=== PATIENT | male | born 1945 | race American Indian/Alaskan Native ===

== ENCOUNTER 2017-01-12 11:09 | Emergency (ER) | payer MEDICARE, OTHER ==
[2017-01-12 11:20] VITALS: BP 135/87
--- NOTE | 2017-01-12 13:28 | Emergency Department Report ---
ED ENT HPI - General Chief complaint: Sore Throat Stated complaint: SORE THROAT/ COUGH Time Seen by Provider: 01/12/17 13:10 Source: patient Mode of arrival: Ambulatory Limitations: No Limitations - History of Present Illness Initial comments: 71 y/o male complain of sore throat x 2 days with non productive cough MD complaint: sore throat Onset/Timin -: days(s) Location: throat Severity: moderate Severity scale (0 -10): 6 Quality: aching Consistency: intermittent Improves with: none Worsens with: swallowing Associated Symptoms: cough - Related Data Previous Rx's Medication Instructions Recorded Last Taken Type Acetaminophen/Codeine [Tylenol #3] 1 tab PO Q6H PRN #20 tab 07/06/16 Unknown Rx Cyclobenzaprine [Flexeril] 10 mg PO TID PRN #30 tablet 07/06/16 Unknown Rx Ibuprofen [Motrin] 600 mg PO Q8H PRN #50 tablet 07/06/16 Unknown Rx Acetaminophen with Codeine 120 ml PO Q6HR #120 ml 01/12/17 Unknown Rx [Acetaminop-Codeine 120-12 mg/5] Amoxicillin/K Clav Tab [Augmentin 1 tab PO Q12HR #14 tab 01/12/17 Unknown Rx 875 mg] Allergies Allergy/AdvReac Type Severity Reaction Status Date / Time No Known Allergies Allergy Verified 07/05/16 20:30 ED Dental HPI - General Chief complaint: Sore Throat Stated complaint: SORE THROAT/ COUGH Time Seen by Provider: 01/12/17 13:10 Source: patient Mode of arrival: Ambulatory Limitations: No Limitations - Related Data Previous Rx's Medication Instructions Recorded Last Taken Type Acetaminophen/Codeine [Tylenol #3] 1 tab PO Q6H PRN #20 tab 07/06/16 Unknown Rx Cyclobenzaprine [Flexeril] 10 mg PO TID PRN #30 tablet 07/06/16 Unknown Rx Ibuprofen [Motrin] 600 mg PO Q8H PRN #50 tablet 07/06/16 Unknown Rx Acetaminophen with Codeine 120 ml PO Q6HR #120 ml 01/12/17 Unknown Rx [Acetaminop-Codeine 120-12 mg/5] Amoxicillin/K Clav Tab [Augmentin 1 tab PO Q12HR #14 tab 01/12/17 Unknown Rx 875 mg] Allergies Allergy/AdvReac Type Severity Reaction Status Date / Time No Known Allergies Allergy Verified 07/05/16 20:30 ED Review of Systems ROS: Stated complaint: SORE THROAT/ COUGH Other details as noted in HPI Constitutional: denies: chills, fever Eyes: denies: eye pain, eye discharge, vision change ENT: throat pain. denies: ear pain Respiratory: cough. denies: shortness of breath, wheezing Cardiovascular: denies: chest pain, palpitations Endocrine: no symptoms reported Gastrointestinal: denies: abdominal pain, nausea, diarrhea Genitourinary: denies: urgency, dysuria Musculoskeletal: denies: back pain, joint swelling, arthralgia Skin: denies: rash, lesions Neurological: denies: headache, weakness, paresthesias Psychiatric: denies: anxiety, depression Hematological/Lymphatic: denies: easy bleeding, easy bruising ED Past Medical Hx - Past Medical History Previous Medical History?: Yes Hx Hypertension: Yes - Surgical History Past Surgical History?: No - Social History Smoking Status: Never Smoker Substance Use Type: Prescribed - Medications Home Medications: Home Medications Medication Instructions Recorded Confirmed Last Taken Type Acetaminophen/Codeine [Tylenol #3] 1 tab PO Q6H PRN #20 tab 07/06/16 Unknown Rx Cyclobenzaprine [Flexeril] 10 mg PO TID PRN #30 tablet 07/06/16 Unknown Rx Ibuprofen [Motrin] 600 mg PO Q8H PRN #50 tablet 07/06/16 Unknown Rx Acetaminophen with Codeine 120 ml PO Q6HR #120 ml 01/12/17 Unknown Rx [Acetaminop-Codeine 120-12 mg/5] Amoxicillin/K Clav Tab [Augmentin 1 tab PO Q12HR #14 tab 01/12/17 Unknown Rx 875 mg] ED Physical Exam - General Limitations: No Limitations General appearance: alert, in no apparent distress - Head Head exam: Present: atraumatic, normocephalic - Eye Eye exam: Present: normal appearance - ENT ENT exam: Present: mucous membranes moist - Expanded ENT Exam Expanded Ear exam: Present: normal external inspection TM/Canal exam: Effusion: Right TM, Left TM Mouth exam: Absent: drooling, trismus, muffled voice Teeth exam: Present: normal inspection Throat exam: Positive: tonsillar erythema, tonsillomegaly, other (post nasal drip ) - Neck Neck exam: Present: normal inspection - Respiratory Respiratory exam: Present: normal lung sounds bilaterally. Absent: respiratory distress, wheezes, rales, rhonchi - Cardiovascular Cardiovascular Exam: Present: regular rate, normal rhythm. Absent: systolic murmur, diastolic murmur, rubs, gallop - GI/Abdominal GI/Abdominal exam: Present: soft, normal bowel sounds - Rectal Rectal exam: Present: deferred - Extremities Exam Extremities exam: Present: normal inspection - Back Exam Back exam: Present: normal inspection - Neurological Exam Neurological exam: Present: alert, oriented X3 - Psychiatric Psychiatric exam: Present: normal affect, normal mood - Skin Skin exam: Present: warm, dry, intact, normal color. Absent: rash ED Course Vital Signs 01/12/17 11:17 Temperature 98.2 F Pulse Rate 73 Respiratory 18 Rate Blood Pressure 135/87 O2 Sat by Pulse 100 Oximetry ED Medical Decision Making - Medical Decision Making sinusitis decardon 10mg given Im during Ed course for tonsillomegaly Critical care attestation.: If time is entered above; I have spent that time in minutes in the direct care of this critically ill patient, excluding procedure time. ED Disposition Clinical Impression: Sinusitis Qualifiers: Sinusitis location: frontal Chronicity: acute Recurrence: non-recurrent Qualified Code(s): J01.10 - Acute frontal sinusitis, unspecified Disposition: DISCHARGED TO HOME OR SELFCARE Is pt being admited?: No Does the pt Need Aspirin: No Condition: Stable Instructions: Sinusitis (ED) Prescriptions: Acetaminophen with Codeine [Acetaminop-Codeine 120-12 mg/5] 120 ml PO Q6HR #120 ml Amoxicillin/K Clav Tab [Augmentin 875 mg] 1 tab PO Q12HR #14 tab Referrals: PRIMARY CARE, [Primary Care Provider] - 3-5 Days [facility] [Outside] - 3-5 Days Forms: Work/School Release Form(ED) Time of Disposition: 14:02
[2017-01-12] MEDS ORDERED: DECADRON IM ONE (13:49)
== END 2017-01-12 14:19 | disposition home or self-care (01) ==
LOC: ED 11:09
DX: J01.10 Acute frontal sinusitis, unspecified (principal); I10 Essential (primary) hypertension; Z79.1 Long term (current) use of non-steroidal anti-inflammatories (NSAID); Z79.2 Long term (current) use of antibiotics; Z79.899 Other long term (current) drug therapy
CPT/HCPCS: 87116; 87430; 96372; 99282; J1100

== ENCOUNTER 2019-05-19 15:48 | Emergency (ER) | payer MEDICARE ==
--- NOTE | 2019-05-19 16:08 | Event Note ---
ED Screening Note ED Screening Note: This initial assessment/diagnostic orders/clinical plan/treatment(s) is/are subject to change based on patients health status, clinical progression and re- assessment by fellow clinical providers in the ED. Further treatment and workup at subsequent clinical providers discretion. Patient/guardian urged not to elope from the ED as their condition may be serious if not clinically assessed and managed. Initial orders include: PT HAD A PROCEDURE LAST WEEK "WITH NEEDLES" DUE TO HIS HEMATURIA SINCE THEN HE HAS HAD ABD PAIN AND CONSTIPATION ABD DISTENDED NO FEVER RO PERF POOR INFORMANT.
[2019-05-19 17:46] LABS: Hematocrit 38.9 % (35.5-45.6); Hemoglobin 13.1 gm/dl (11.8-15.2); Mean Corpuscular HGB Conc 34 % (32-34); Mean Corpuscular Volume 98 fl (84-94); Platelet Count 164 K/mm3 (140-440); Red Blood Count 3.98 M/mm3 (3.65-5.03)
[2019-05-19 18:09] LABS: Alanine Aminotransferase 17 units/L (7-56); Albumin 4.3 g/dL (3.9-5); BUN/Creatinine Ratio 21; Blood Urea Nitrogen 19 mg/dL (9-20); Calcium 9.5 mg/dL (8.4-10.2); Hemolysis Index 75
--- NOTE | 2019-05-19 18:21 | XRay Report ---
PROCEDURE: XR ABD SERIES W CXR 1V TECHNIQUE: Abdominal series complete, including supine and upright AP views of the abdomen and front al chest. HISTORY: ABD PAIN COMPARISONS: None . FINDINGS: Heart: Normal. Mediastinum/Vessels: Normal. Lungs/Pleural space: No infiltrate, effusion, or pneumothorax. Bowel gas pattern: There is moderate to large volume of stool in the colon. Bowel gas pattern is non obstructive. . Masses or calcifications: None . Bony structures: No acute osseous abnormality . Other: No free intraperitoneal air . IMPRESSION: Moderate to large volume of stool seen throughout the colon. This document is electronically signed by Laverne Venegas MD., May 19 2019 06:19:23 PM ET
--- NOTE | 2019-05-19 20:03 | Emergency Department Report ---
ED Abdominal Pain HPI - General Chief Complaint: Abdominal Pain Stated Complaint: CONSTIPATION Time Seen by Provider: 05/19/19 16:07 Source: patient Mode of arrival: Ambulatory Limitations: No Limitations - History of Present Illness Initial Comments: 73-year-old -Swedish male presents to the emergency room for constipation with rectal pain. Patient states he took a full bottle of magnesium to titrate this a.m. but no relief of constipation. Patient reports that he had a prostate I opted on 05/14/[address] Santos urologist [facility]. He has a primary care provider Dr. Messina. He has a past medical history of hypertension. Patient currently takes amlodipine and hydrochlorothiazide. Patient reports that he sees light blood in stool every so often. She denies any nausea or vomiting no fever or chills. MD Complaint: abdominal pain Onset/Timin -: days(s) Location: diffuse Radiation: other (rectal pain) Severity: moderate Quality: fullness Consistency: constant Improves With: nothing Worsens With: nothing Context: recent surgery/procedure (prostate biopsy 05/15/2019) Associated Symptoms: constipation, hematochezia. denies: nausea, vomiting, diarrhea, chills, dysuria, hematemesis Treatments Prior to Arrival: other (magnesium titrate) - Related Data Previous Rx's Medication Instructions Recorded Last Taken Type Acetaminophen/Codeine [Tylenol #3] 1 tab PO Q6H PRN #20 tab 07/06/16 Unknown Rx Cyclobenzaprine [Flexeril] 10 mg PO TID PRN #30 tablet 07/06/16 Unknown Rx Ibuprofen [Motrin] 600 mg PO Q8H PRN #50 tablet 07/06/16 Unknown Rx Acetamin/Codeine 120-12Mg/5 ml 5 ml PO TID PRN #120 ml 01/12/17 Unknown Rx [Tylenol/Codeine] Amoxicillin/K Clav Tab [Augmentin 1 tab PO Q12HR #14 tab 01/12/17 Unknown Rx 875 mg] Polyethylene Glycol 3350 [Miralax] 70 gm PO QDAY #1 bottle 05/19/19 Unknown Rx Allergies Allergy/AdvReac Type Severity Reaction Status Date / Time No Known Allergies Allergy Verified 07/05/16 20:30 ED Review of Systems ROS: Stated complaint: CONSTIPATION Other details as noted in HPI Comment: All other systems reviewed and negative ED Past Medical Hx - Past Medical History Previous Medical History?: Yes Hx Hypertension: Yes - Surgical History Past Surgical History?: No - Social History Smoking Status: Never Smoker Substance Use Type: Prescribed - Medications Home Medications: Home Medications Medication Instructions Recorded Confirmed Last Taken Type Acetaminophen/Codeine [Tylenol #3] 1 tab PO Q6H PRN #20 tab 07/06/16 Unknown Rx Cyclobenzaprine [Flexeril] 10 mg PO TID PRN #30 tablet 07/06/16 Unknown Rx Ibuprofen [Motrin] 600 mg PO Q8H PRN #50 tablet 07/06/16 Unknown Rx Acetamin/Codeine 120-12Mg/5 ml 5 ml PO TID PRN #120 ml 01/12/17 Unknown Rx [Tylenol/Codeine] Amoxicillin/K Clav Tab [Augmentin 1 tab PO Q12HR #14 tab 01/12/17 Unknown Rx 875 mg] Polyethylene Glycol 3350 [Miralax] 70 gm PO QDAY #1 bottle 05/19/19 Unknown Rx ED Physical Exam - General Limitations: No Limitations General appearance: alert, in no apparent distress - Head Head exam: Present: atraumatic, normocephalic - Eye Eye exam: Present: normal appearance - ENT ENT exam: Present: mucous membranes moist - Respiratory Respiratory exam: Present: normal lung sounds bilaterally. Absent: respiratory distress - Cardiovascular Cardiovascular Exam: Present: regular rate, normal rhythm. Absent: systolic murmur, diastolic murmur, rubs, gallop - GI/Abdominal GI/Abdominal exam: Present: soft, distended. Absent: tenderness ED Medical Decision Making - Lab Data Result diagrams: 05/19/19 17:32 05/19/19 17:32 - Radiology Data Radiology results: report reviewed Ordering Physician: FRANKY PRADO Date of Service: 05/19/19 Procedure(s): XR abd series w cxr 1V Accession Number(s): [id number] cc: FRANKY PRADO Fluoro Time In Minutes: PROCEDURE: XR ABD SERIES W CXR 1V TECHNIQUE: Abdominal series complete, including supine and upright AP views of the abdomen and frontal chest. HISTORY: ABD PAIN COMPARISONS: None . FINDINGS: Heart: Normal. Mediastinum/Vessels: Normal. Lungs/Pleural space: No infiltrate, effusion, or pneumothorax. Bowel gas pattern: There is moderate to large volume of stool in the colon. Bowel gas pattern is nonobstructive. . Masses or calcifications: None . Bony structures: No acute osseous abnormality . Other: No free intraperitoneal air . IMPRESSION: Moderate to large volume of stool seen throughout the colon. This document is electronically signed by Laverne Venegas MD., May 19 2019 06:19:23 PM ET Transcribed By: [facility] Dictated By: LAVERNE VENEGAS M.D. Electronically Authenticated By: LAVERNE VENEGAS M.D. Signed Date/Time: 05/19/19 182 DD/ 1640 TD/TT: 05/19/19 1640 - Medical Decision Making 73-year-old male comes in for constipation. Patient ports just took some mag citrate. Since patient has been here in the emergency room after ordering disim paction was able to have 2 large stools before digital removal. Patient reports that he feels much better and will like to be discharged home. Discussed the patient he needs to get [id number] MiraLAX to take in the morning with his coffee and juice. Follow-up with his primary care provider. Critical care attestation.: If time is entered above; I have spent that time in minutes in the direct care of this critically ill patient, excluding procedure time. ED Disposition Clinical Impression: Constipation Disposition: DC-01 TO HOME OR SELFCARE Is pt being admited?: No Does the pt Need Aspirin: No Condition: Stable Instructions: Constipation (ED), High Fiber Diet (ED) Additional Instructions: Please take MiraLAX as prescribed. Increase her water intake and high fiber diet. Follow-up with her primary care provider if she continued to suffer from constipation. Prescriptions: Polyethylene Glycol 3350 [Miralax] 70 gm PO QDAY #1 bottle Referrals: VIANEY SIDDIQUI MD [Primary Care Provider] - 3-5 Days
[2019-05-19 23:38] VITALS: BP 135/89
== END 2019-05-19 23:36 | disposition home or self-care (01) ==
LOC: ED 15:48
DX: K59.00 Constipation, unspecified (principal); I10 Essential (primary) hypertension
CPT/HCPCS: 36415; 74022; 80053; 85027; 99283

== ENCOUNTER 2021-12-11 13:10 | Emergency (ER) | payer MEDICARE ==
[2021-12-11] MEDS ORDERED: dexAMETHasone 20 MG/5 ML VIAL IM ONE (14:51)
[2021-12-11] MEDS ORDERED: IBUPROFEN 400 MG TAB PO ONE (14:51)
--- NOTE | 2021-12-11 14:52 | Emergency Department Report ---
ED ENT HPI - General Chief complaint: Sore Throat Stated complaint: SORE THROAT Time Seen by Provider: 12/11/21 14:35 Source: patient Mode of arrival: Ambulatory Limitations: No Limitations - History of Present Illness Initial comments: 75-year-old -Polish male with a past medical history of hypertension presents to the ER today with sore throat and cough. Patient states that his symptoms started 2 days ago. He states that his having pain when he swallows. He denies any swelling in the throat. He denies any trismus or drooling. He states that his cough has been productive. He did feel feverish this past Saturday but this has since resolved. He denies any runny nose, nasal congestion, chest pain, shortness of breath or wheezing. He denies ill contacts or recent travel. He has been vaccinated against COVID-19. complaint: sore throat -: days(s) (2 days ) - Related Data Previous Rx's Medication Instructions Recorded Last Taken Type Amoxicillin [Trimox CAP] 500 mg PO Q8H #30 capsule 12/11/21 Unknown Rx Naproxen Sodium [Naproxen Sodium 220 mg PO Q6H PRN #20 12/11/21 Unknown Rx 220mg] Phenol/Glycerin [Chloraseptic Max 1 - 2 spray PO Q4HR PRN #1 spray 12/11/21 Unknown Rx [place]] Allergies Allergy/AdvReac Type Severity Reaction Status Date / Time No Known Allergies Allergy Verified 12/11/21 13:12 ED Dental HPI - General Chief complaint: Sore Throat Stated complaint: SORE THROAT Time Seen by Provider: 12/11/21 14:35 Source: patient Mode of arrival: Ambulatory Limitations: No Limitations - Related Data Previous Rx's Medication Instructions Recorded Last Taken Type Amoxicillin [Trimox CAP] 500 mg PO Q8H #30 capsule 12/11/21 Unknown Rx Naproxen Sodium [Naproxen Sodium 220 mg PO Q6H PRN #20 12/11/21 Unknown Rx 220mg] Phenol/Glycerin [Chloraseptic Max 1 - 2 spray PO Q4HR PRN #1 spray 12/11/21 Unknown Rx [place]] Allergies Allergy/AdvReac Type Severity Reaction Status Date / Time No Known Allergies Allergy Verified 12/11/21 13:12 ED Review of Systems ROS: Stated complaint: SORE THROAT Other details as noted in HPI Comment: All other systems reviewed and negative Constitutional: denies: chills, fever Eyes: denies: eye pain, eye discharge, vision change ENT: throat pain. denies: dental pain, hearing loss, epistaxis, congestion Respiratory: cough. denies: shortness of breath, SOB with exertion, wheezing Cardiovascular: denies: chest pain, palpitations Gastrointestinal: denies: abdominal pain, nausea, diarrhea, constipation, hematemesis, melena, hematochezia Genitourinary: denies: urgency, dysuria, frequency, hematuria, discharge, testicular pain, testicular mass Musculoskeletal: denies: back pain, joint swelling, arthralgia Skin: denies: rash, lesions, change in color, change in hair/nails, pruritus ED Past Medical Hx - Past Medical History Previous Medical History?: Yes Hx Hypertension: Yes - Surgical History Past Surgical History?: No - Social History Smoking Status: Never Smoker Substance Use Type: Prescribed - Medications Home Medications: Home Medications Medication Instructions Recorded Confirmed Last Taken Type Amoxicillin [Trimox CAP] 500 mg PO Q8H #30 capsule 12/11/21 Unknown Rx Naproxen Sodium [Naproxen Sodium 220 mg PO Q6H PRN #20 12/11/21 Unknown Rx 220mg] Phenol/Glycerin [Chloraseptic Max 1 - 2 spray PO Q4HR PRN #1 spray 12/11/21 Unknown Rx [place]] ED Physical Exam - General Limitations: No Limitations General appearance: alert, in no apparent distress - Head Head exam: Present: atraumatic, normocephalic, normal inspection - Eye Eye exam: Present: normal appearance, PERRL, EOMI Pupils: Present: normal accommodation - ENT ENT exam: Present: mucous membranes moist - Expanded ENT Exam Expanded Mouth exam: Present: normal external inspection Throat exam: Positive: tonsillar erythema, tonsillomegaly, other (Uvula also mildly swollen and erythematous). Negative: tonsillar exudate, R peritonsillar mass, L peritonsillar mass - Neck Neck exam: Present: normal inspection, full ROM. Absent: meningismus - Respiratory Respiratory exam: Present: normal lung sounds bilaterally. Absent: respiratory distress, wheezes, rales, rhonchi - Cardiovascular Cardiovascular Exam: Present: regular rate, normal rhythm, normal heart sounds - Neurological Exam Neurological exam: Present: alert, oriented X3, CN II-XII intact, normal gait - Psychiatric Psychiatric exam: Present: normal affect, normal mood ED Course Vital Signs 12/11/21 12/11/21 13:17 14:44 Temperature 98.6 F Pulse Rate 78 Respiratory 20 Rate Blood Pressure 108/77 O2 Sat by Pulse 80 L 97 Oximetry ED Medical Decision Making - Radiology Data Radiology results: report reviewed Patient: CARLOS WERNER MR#: [id number] : 1945 Acct:[id number] Age/Sex: 75 / M ADM Date: 12/11/21 Loc: ED Attending Dr: Ordering Physician: LUZ HOLLAND Date of Service: 12/11/21 Procedure(s): XR chest routine 2V Accession Number(s): [id number] cc: LUZ HOLLAND Fluoro Time In Minutes: CHEST PA AND LATERAL VIEWS INDICATION: Cough. COMPARISON: None. FINDINGS: Support devices: None. Heart: Within normal limits. Lungs/Pleura: No acute pulmonary or pleural findings. There is mild elevation of the left hemidiaphragm with scarring versus atelectasis in the left lung base. IMPRESSION: 1. No acute findings. Signer Name: Ken Magaña MD Signed: 12/11/2021 3:09 PM Workstation Name: [id number] Transcribed By: BRIANNE Dictated By: Ken Magaña MD Electronically Authenticated By: Ken Magaña MD Signed Date/Time: 12/11/21 1509 DD/ 1508 TD/TT: - Medical Decision Making 1540: cxr negative for anything acute rapid strep negative Patient symptoms could be related to viral illness but given throat exam show bilateral tonsillar and uvular swelling with erythema, I will still cover with abx for possible bacterial infectious process including strep. He is tolerating secretions well. He has no trismus or drooling. He has no stridor. He is not in any respiratory distress. He is not toxic or ill-appearing. He is well- hydrated. Vital signs reviewed. He is initial O2 sat was in error per triage nurse. He was actually oxygenating at 97% on room air. He does not have any evidence of peritonsillar abscess, retropharyngeal abscess, [place] angina, meningitis, respiratory distress syndrome, or any other emergent conditions warranting additional testing, or admission at this time. Discussed all results with patient. Discussed treatment plan with patient. I still recommended that he get a COVID-19 test as this could also be a possibility to the cause of his symptoms and follow-up with his PCP. Patient expressed understanding of all instructions and agree with plan. Patient was stable at time of discharge. Critical care attestation.: If time is entered above; I have spent that time in minutes in the direct care of this critically ill patient, excluding procedure time. ED Disposition Clinical Impression: Pharyngitis, Uvulitis, Viral URI with cough Disposition: HOME / SELF CARE / HOMELESS Is pt being admited?: No Does the pt Need Aspirin: No Condition: Stable Instructions: Upper Respiratory Infection, Adult, Cough, Adult, Pharyngitis, [id number], Uvulitis Additional Instructions: Take the amoxicillin as prescribed. Take the naproxen and Chloraseptic spray as prescribed to help with pain. You can take Coricidin HP from [id number] to help with your cough. Do recommend that you get a COVID-19 test once a local pharmacy or urgent care to rule it out as a cause. Follow up with your PCP this week. Return to ED if worse. Prescriptions: Phenol/Glycerin [Chloraseptic Max [place]] 1 - 2 spray PO Q4HR PRN #1 spray PRN Reason: Throat Pain Naproxen Sodium [Naproxen Sodium 220mg] 220 mg PO Q6H PRN #20 PRN Reason: Pain Amoxicillin [Trimox CAP] 500 mg PO Q8H #30 capsule Referrals: PRIMARY CARE, [Primary Care Provider] - 3-5 Days Time of Disposition: 15:35
--- NOTE | 2021-12-11 15:13 | XRay Report ---
CHEST PA AND LATERAL VIEWS INDICATION: Cough. COMPARISON: None. FINDINGS: Support devices: None. Heart: Within normal limits. Lungs/Pleura: No acute pulmonary or pleural findings. There is mild elevation of the left hemidiaphra gm with scarring versus atelectasis in the left lung base. IMPRESSION: 1. No acute findings. Signer Name: Ken Magaña MD Signed: 12/11/2021 3:09 PM Workstation Name: [id number]
[2021-12-11 16:12] VITALS: BP 116/69
== END 2021-12-11 16:12 | disposition home or self-care (01) ==
LOC: ED 13:10
DX: J02.9 Acute pharyngitis, unspecified (principal); K12.2 Cellulitis and abscess of mouth; J06.9 Acute upper respiratory infection, unspecified; R05.9 Cough, unspecified; I10 Essential (primary) hypertension
CPT/HCPCS: 71046; 87116; 87430; 96372; 99284; J1100